=== PATIENT | male | born 1940 | race African-American/Black ===

== ENCOUNTER 2021-02-20 14:17 | Emergency (ER) | payer MEDICARE ==
[~2021-02-20] VITALS: Ht 170.2 cm; Wt 68.0 kg
[2021-02-20] MEDS ORDERED: SODIUM CHLORIDE 0.9% 1,000 ML IV ONE (16:00)
[2021-02-20 16:06] LABS: CHLORIDE 105 mEq/L (98-107)
[2021-02-20 16:08] LABS: BASOPHILS % 0.5 % (0.0-2.0); EOSINOPHILS % 4.9 % (0.0-5.0); HEMATOCRIT. 38.1 % (42.0-52.0); HEMOGLOBIN. 12.2 g/dL (14.0-18.0); LYMPHOCYTES % 24.4 % (20.0-50.0); MEAN CORPUSCULAR HEMOGLOBIN 29.9 pg (28.0-32.0); MEAN CORPUSCULAR VOLUME 93.6 fL (80.0-94.0); MEAN PLATELET VOLUME 8.6 fl (7.4-10.4); MONOCYTES % 10.4 % (2.0-8.0); NEUTROPHILS % 59.8 % (40.0-76.0); PLATELET 212 x1000/uL (130-400); RED BLOOD CELL COUNT 4.07 mill/uL (4.7-6.1); RED CELL DISTRIBUTION WIDTH 15.1 % (11.6-14.6)
[2021-02-20 19:55] LABS: CLARITY URINE CLEAR (CLEAR); COLOR URINE YELLOW (YELLOW); KETONES URINE NEGATIVE (NEGATIVE); LEUKOCYTE ESTERASE URINE 2+ (NEGATIVE); NITRITE URINE POSITIVE (NEGATIVE); OCCULT BLOOD URINE NEGATIVE (NEGATIVE); PROTEIN URINE NEGATIVE (NEGATIVE); SPECIFIC GRAVITY URINE 1.017 (1.005-1.030)
[2021-02-20] MEDS ORDERED: NITR-87 MT (20:18)
[2021-02-20] MEDS ORDERED: NITROFURANTOIN 100MG M/M CAPSULE PO ONE (20:30)
[2021-02-20 20:50] VITALS: BP 146/66
== END 2021-02-20 21:15 | disposition home or self-care (01) ==
LOC: ER 14:41
DX: R55 Syncope and collapse (principal); N39.0 Urinary tract infection, site not specified
CPT/HCPCS: 36415; 80053; 81003; 84484; 85025; 93005; 96360; 96361; 99285

== ENCOUNTER 2025-01-19 15:20 | Emergency (ER) | payer OTHER ==
[~2025-01-19] VITALS: Ht 177.8 cm; Wt 86.0 kg
[~2025-01-19 15:20] MED LIST: NITR-87 MT
[2025-01-19] MEDS: SODIUM CHLORIDE 0.9% (SEPSIS BOLUS) IV ONE (15:58)
[2025-01-19 16:17] LABS: BASOPHILS % 0.3 % (0.0-2.0); EOSINOPHILS % 5.0 % (0.0-5.0); HEMATOCRIT. 36.7 % (42.0-52.0); HEMOGLOBIN. 12.0 g/dL (14.0-18.0); LYMPHOCYTES % 30.1 % (20.0-50.0); MEAN PLATELET VOLUME 8.5 fl (7.4-10.4); MONOCYTES % 7.2 % (2.0-8.0); NEUTROPHILS % 57.4 % (40.0-76.0); PLATELET 179 x1000/uL (130-400); RED BLOOD CELL COUNT 4.19 mill/uL (4.7-6.1); RED CELL DISTRIBUTION WIDTH 16.9 % (11.6-14.6)
[2025-01-19] MEDS: CEFTRIAXONE 1GM/50ML 50 ML IV ONE (16:25)
[2025-01-19 16:28] LABS: INR 1.0
[2025-01-19 16:40] LABS: CREATININE 1.2 mg/dL (0.6-1.3); TROPONIN I HIGH SENSITIVITY 12 ng/L (3.0-53); UREA NITROGEN BLOOD 17 mg/dL (9-23)
[2025-01-19 16:42] LABS: ASPARTATE AMINOTRANSFERASE 36 IU/L (<34); BILIRUBIN DIRECT 0.1 mg/dL (<=3.0); BILIRUBIN TOTAL 0.4 mg/dL (0.1-1.0); PROTEIN TOTAL 7.0 g/dL (6.0-8.3)
[2025-01-19] MEDS ORDERED: IPRATROPIUM/ALBUTEROL 0.5-3(2.5)MG/3ML NEB HHN ONE (17:00)
[2025-01-19] MEDS: AZITHROMYCIN 500MG/250ML 250 ML IV ONE (17:30)
[2025-01-19] MEDS: METHYLPREDNISOLONE SOD SUCC 125MG/2ML (ACT-O-VIAL) IV ONE (18:53)
[2025-01-19] MEDS: ONDANSETRON HCL 4MG/2ML INJ IV ONE (20:52)
[2025-01-19 21:00] VITALS: BP 138/70; PULSE 79; RESP 18; TEMP 37; O2SAT 97
[2025-01-19] MEDS ORDERED: ONDANSETRON HCL 4MG/2ML INJ IV PRN (21:00)
[2025-01-19] MEDS ORDERED: ACETAMINOPHEN 325MG TABLET PO PRN ×2 (21:00)
[2025-01-19] MEDS ORDERED: IPRATROPIUM/ALBUTEROL 0.5-3(2.5)MG/3ML NEB HHN PRN (21:00)
[2025-01-19] MEDS: IPRATROPIUM/ALBUTEROL 0.5-3(2.5)MG/3ML NEB HHN SCH (21:00)
[2025-01-19] MEDS ORDERED: CLONIDINE 0.1MG TABLET PO PRN (21:00)
[2025-01-19] MEDS ORDERED: DOCUSATE SODIUM 100MG CAPSULE PO PRN (21:00)
[2025-01-19] MEDS ORDERED: SODIUM CHLORIDE 0.9% 1,000 ML IV SCH (23:15)
[2025-01-19 23:29] LABS: FOLIC ACID (FOLATE) SERUM > 20.00 ng/mL (>5.38); VITAMIN B12 SERUM 316 pg/mL (211-911)
[2025-01-20 00:44] LABS: PHOSPHORUS 3.6 mg/dL (2.5-4.9)
[2025-01-20 00:47] LABS: T4 FREE 0.94 ng/dL (0.89-1.76)
[2025-01-20] MEDS ORDERED: PANTOPRAZOLE SODIUM 40 MG/VIAL IV SCH (09:00)
[2025-01-20] MEDS ORDERED: ENOXAPARIN 40MG/0.4ML SYR SUBCUT SCH (09:00)
[2025-01-20] MEDS ORDERED: CEFTRIAXONE 1GM/50ML 50 ML IV SCH ×2 (16:00)
[2025-01-20] MEDS ORDERED: AZITHROMYCIN 500MG/250ML 250 ML IV SCH ×2 (17:00)
== END 2025-01-19 21:15 | disposition short-term general hospital (02) ==
LOC: ER 15:20 → CANBEDREQ 18:38 → ER 21:15
DX: A41.9 Sepsis, unspecified organism (principal); R65.20 Severe sepsis without septic shock; J69.0 Pneumonitis due to inhalation of food and vomit; J84.9 Interstitial pulmonary disease, unspecified; I10 Essential (primary) hypertension; D64.9 Anemia, unspecified; Z85.46 Personal history of malignant neoplasm of prostate; Z86.718 Personal history of other venous thrombosis and embolism; Z87.891 Personal history of nicotine dependence; Z88.0 Allergy status to penicillin; Z88.1 Allergy status to other antibiotic agents; Z90.79 Acquired absence of other genital organ(s); Z98.1 Arthrodesis status; Z20.822 Contact with and (suspected) exposure to COVID-19
CPT/HCPCS: 80076; 80048; 82607; 82728; 82746; 83036; 84439; 83540; 83550; 83605; 83735; 84100; 84443; 85025; 85610; 85730; 87040; 84484; 36415; 84145; 71045; 74176; 94640; 93005; 96367; 96361; 96365; 96375; 99291; 87426; J0456; J0696; J2919; J2405; Z7610 ×3; J7030; 94070; 94664; 98960